=== PATIENT | male | born 1930 | race Two or more races ===

== ENCOUNTER 2017-05-25 01:18 | Emergency (ER) | payer SELFPAY ==
[~2017-05-25] VITALS: Ht 162.6 cm; Wt 49.0 kg
--- NOTE | ~2017-05-25 | CR72 ---
[facility] A Service of [facility] RADIOLOGY TEXT RESULTS PATIENT: DELILAH RAMIREZ LOCATION: [facility] : 32 UNIT #: [id number] AGE: [address]: Kulwinder Castaneda MD SEX: M ORDER DR: [id number] [facility] [address] [place], [place] [address] [id number] E MR#: [id number] Acc #: [id number] NAME: DELILAH RAMIREZ : 1930 SEX: M STUDY DATE/TIME: 05/25/2017 02:44 UNIT: [facility] ROOM: STUDY DESCRIPTION: CR Chest Single View Portable Attending Physician: Kulwinder Castaneda M.D. Ordering Physician: Kulwinder Castaneda M.D. Primary Care Physician: Primary Care Physician No MEDICAL IMAGING REPORT This report is preliminary unless electronic signature is present EXAM Portable chest 05/25 at 02:44 INDICATION Shortness of air and congestion with difficulty breathing for 2-3 days. FINDINGS AP portable chest was obtained. No comparison. There is mild cardiomegaly. Thoracic aorta is tortuous. The lungs have an emphysematous appearance. There is probable atelectasis or scarring in the bases. Pneumonia should be excluded clinically. There is no pneumothorax. IMPRESSION Cardiomegaly with a tortuous aorta. Lungs have an emphysematous appearance. There is alveolar opacity in the bases having the appearance of atelectasis or scarring. Pneumonia should be excluded clinically. Dictated by... Kan Posada Jr., M.D. THIS IS AN ELECTRONICALLY VERIFIED REPORT Kan Posada Jr., M.D. at 05/26/2017 12:52 AM EILEEN/blanca TD: 05/25/2017 08:49 JOB #: [id number] MEDICAL IMAGING REPORT Page 1 of 1 COPY
--- NOTE | ~2017-05-25 | EKG ---
PATIENT: DELILAH RAMIREZ UNIT #: [id number] Ventricular Rate: 91 BPM Atrial Rate: 91 BPM P-R Interval: 172 ms QRS Duration: 74 ms Q-T Interval: 346 ms QTC Calculation(Bezet): 425 ms P [place]: 82 degrees Calculated R [place]: 51 degrees Calculated T [place]: 66 degrees Diagnosis Line: Normal sinus rhythm Diagnosis Line: Normal ECG Diagnosis Line: No previous ECGs available Diagnosis Line: Confirmed by PAM BUCK MD ([id number]) on 05/25/2017 Diagnosis Line: 6:50:49 PM INTERPRETING MD: CIELO AGUILAR
[2017-05-25 02:19] LABS: BASOPHIL% 0.3 % (0-2.5); EOSINOPHIL# 0.5 X10e3 (0-0.7); EOSINOPHIL% 3.3 % (0.0-7.0); HEMATOCRIT 37.7 % (38.0-50.0); HEMOGLOBIN 12.8 gm/dL (13.0-16.0); LYMPHOCYTE# 1.9 X10e3 (1.0-3.5); MEAN CELL VOLUME 88.4 FL (83-96); MEAN CORPUSCULAR HGB CONC 33.9 g/dL (30-36); MEAN PLATELET VOLUME 7.2 FL (6.5-11.5); MONOCYTE# 0.9 X10e3 (0-1.0); MONOCYTE% 5.3 % (3.0-12.0); NEUTROPHIL# 12.7 X10e3 (1.5-7.1); NEUTROPHIL% 79.1 % (40-75); PLATELET COUNT 309 X10e3 (140-420); RED BLOOD COUNT 4.27 X10e (3.90-5.60); RED CELL DISTRIBUTION WIDTH 13.2 % (11.0-15.5); WHITE BLOOD COUNT 16.1 X10e3 (4.0-10.5)
[2017-05-25 02:20] LABS: DIFF IND YES
[2017-05-25 02:32] LABS: ALBUMIN SERUM 4.1 g/dL (3.5-5.0); BILIRUBIN, DIRECT 0.2 mg/dL (0.0-0.2); BILIRUBIN,TOTAL 1.2 mg/dL (0.2-2.0); BUN/CREATININE RATIO 22.85; CALCIUM SERUM 8.9 mg/dL (8.4-10.2); CREATININE SERUM 0.7 mg/dL (0.6-1.4); GLOM FILT RATE Estimated 86.1 mL/min (>60); POTASSIUM 4.4 mmol/L (3.5-5.1); PROTEIN TOTAL SERUM 7.6 g/dL (6.0-8.3)
[2017-05-25 02:40] LABS: PLATELET ESTIMATE NORMAL (NORMAL); RBC NORMAL YES
[2017-05-25 03:41] LABS: POC - TROPONIN <0.05 ng/mL (<=0.05)
[2017-05-25 05:35] LABS: POC - CKMB 7.4 ng/mL (0.0-7.9); POC - TROPONIN <0.05 ng/mL (<=0.05)
== END 2017-05-25 05:48 | disposition home or self-care (01) ==
LOC: CED 01:18
PROVIDERS: Emergency Medicine
DX: J18.9 Pneumonia, unspecified organism (principal); F17.210 Nicotine dependence, cigarettes, uncomplicated
CPT/HCPCS: 36415; 71010; 80048; 80076; 82553; 84484; 85025; 87651; 93005; 94640; 96365; 96375; 99285; J0456; J0696